=== PATIENT | female | born 1975 | race Caucasian/White ===

== ENCOUNTER 2020-09-24 13:35 | Emergency (ER) | payer OTHER ==
[2020-09-24 14:51] LABS: BASOPHIL 0.4 % (0-2); EOSINOPHIL 0.3 % (0-5); HCT 38.5 % (37.0-47.0); HGB 12.7 g/dl (12.5-16.0); LYMPHOCYTE 19.1 % (15-48); MCH 29.6 pg (25.0-31.0); MCV 89.7 fL (78.0-100.0); MONOCYTE 8.5 % (0-12); MPV 10.6 fL (6.0-9.5); NEUTROPHIL 71.4 % (41-80); NRBC 0; PLT 242 K/uL (150-400); RBC 4.29 M/uL (4.20-5.40); RDW 12.6 % (11.5-14.0); WBC 7.5 K/uL (4.0-10.5)
[2020-09-24 15:05] LABS: ALBUMIN 3.1 g/dL (3.4-5.0); BILIRUBIN - TOTAL 0.3 mg/dL (0.2-1.0); CREATININE 0.85 mg/dL (0.51-0.95); GLOBULIN (CALCULATION) 4.1 g/dL; POTASSIUM 3.9 mmol/L (3.5-5.1); TOTAL PROTEIN 7.2 g/dL (6.4-8.2)
[2020-09-24 16:24] LABS: BILIRUBIN NEGATIVE (NEGATIVE); BLOOD TRACE-INTACT Ery/uL (NEGATIVE); CLARITY CLEAR (CLEAR); COLOR YELLOW (YELLOW); GLUCOSE (U) NORMAL (NORMAL); LEUKOCYTES NEGATIVE Leu/uL (NEGATIVE); NITRITE NEGATIVE (NEGATIVE); PROTEIN NEGATIVE (NEGATIVE); UROBILINOGEN 0.2 mg/dL (0.2-1.0); pH 5.5 (5.0-9.0)
[2020-09-24 16:33] LABS: BACTERIA TRACE; URINARY RBC RARE; URINARY WBC RARE
[2020-09-24] MEDS ORDERED: NORCO 5-325 TA1 EACH PO (17:30)
== END 2020-09-24 18:20 | disposition home or self-care (01) ==
LOC: FER 13:35
PROVIDERS: Nurse Practitioner Family
DX: S22.42XA Multiple fractures of ribs, left side, initial encounter for closed fracture (principal); J90 Pleural effusion, not elsewhere classified; J98.11 Atelectasis; E03.9 Hypothyroidism, unspecified; R10.12 Left upper quadrant pain; V80.010A Animal-rider injured by fall from or being thrown from horse in noncollision accident, initial encounter; Z79.899 Other long term (current) drug therapy
CPT/HCPCS: 36415; 80053; 81001; 85025; 94010; J1885; J2405; J7030; Q9967